=== PATIENT | female | born 1955 | race Caucasian/White ===

== ENCOUNTER 2017-10-13 11:14 | Emergency (ER) | payer BC, OTHER ==
[~2017-10-13] VITALS: Ht 304.8 cm; Wt 98.3 kg
[2017-10-13 11:30] VITALS: BP 140/71; PULSE 69; RESP 18; TEMP 98; O2SAT 95
[2017-10-13] MEDS ORDERED: GLIP10TA6 PO (11:37)
[2017-10-13] MEDS ORDERED: DAPA1TAB3 PO (11:37)
[2017-10-13] MEDS ORDERED: LANTUS2P SQ (11:37)
[2017-10-13] MEDS ORDERED: CIPR0.3S RIGHT EAR (11:43)
--- NOTE | 2017-10-13 11:48 | PD ---
HPI Chief Complaint: ENT Complaint Time Seen by Provider: 11:33 Travel History International Travel<30 days: No Contact w/Intl Traveler<30days: No Traveled to known affect area: No History of Present Illness HPI Patient comes in complaining of bilateral ear pain right greater than left ongoing for 2 weeks. Patient states her right ear is been draining. Describes pain as aching-like pain without radiation. Patient is been taking ibuprofen and putting cotton in her ear with no improvement of symptoms. Denies anything making it worse. Denies any fevers, nausea or vomiting, sore throat, neck pain , difficulty swallowing, or headaches. PFSH Past Medical History Diabetes: Yes Patient Takes Glucophage: No Influenza Vaccination: No ?: Not Past Surgical History Appendectomy: Yes Genitourinary Surgery: Yes (BLADDER) Joint Replacement: Yes (KNEE) Social History Alcohol Use: No Tobacco Use: No Substance Use: No Allergies-Medications (Allergen,Severity, Reaction): Coded Allergies: oxycodone (Verified Allergy, Unknown, DOES NOT KNOW WHY, 10/13/17) Reported Meds & Prescriptions Reported Meds & Active Scripts Active Ciprodex Otic Drops (Ciprofloxacin-Dexamethasone Otic Drops) 0.3-0.1% Susp 4 Drop RIGHT EAR BID 10 Days Reported Farxiga (Dapagliflozin) 10 Mg Tab 10 Mg PO DAILY Glipizide 10 Mg Tab 10 Mg PO DAILY@1600 Take 30 minutes before a meal Lantus Inj (Insulin Glargine) 1,000 Unit/10 Ml Vial 10 Units SQ HS Review of Systems Except as stated in HPI: all other systems reviewed are Neg Physical Exam Narrative GENERAL: Well-developed, overly nourished, in no acute distress, and non-ill appearing. SKIN: Focused skin assessment warm and dry. HEAD: Atraumatic. Normocephalic. EYES: Pupils equal and round. EOMI. No scleral icterus. No injection or drainage. ENT: No nasal bleeding or discharge. Mucous membranes pink and moist. Tympanic membranes pearly traylor bilaterally. Right auditory canal is edematous and erythematous. There is reproducible pain with tugging of the auricle and tragus. NECK: Trachea midline. No cervical lymphadenopathy. Supple. No nuclear rigidity. RESPIRATORY: No accessory muscle use. No respiratory distress. MUSCULOSKELETAL: No obvious deformities. No clubbing. No cyanosis. No edema. Full range of motion. NEUROLOGICAL: Awake and alert. No obvious cranial nerve deficits. Motor grossly within normal limits. Normal speech. PSYCHIATRIC: Appropriate mood and affect; insight and judgment normal. Data Data Last Documented VS Vital Signs Date Time Temp Pulse Resp B/P (MAP) Pulse Ox O2 Delivery O2 Flow Rate FiO2 10/13/17 11:30 98.0 69 18 140/71 (94) 95 Orders Orders Ed Discharge Order (10/13/17 11:48) MDM Medical Decision Making Medical Screen Exam Complete: Yes Emergency Medical Condition: Yes Differential Diagnosis Otitis media, otitis externa, otalgia Narrative Course The patient presented with ear pain. History and examination revealed evidence of otitis externa. There was no significant swelling of the canal nor significant debris. No clinical evidence by history or evaluation to suspect meningitis and/or sepsis, nor malignant OE or mastoiditis. I discussed with the patient, diagnosis, plan of care and to follow up with the patients primary physician within the next week. The patient was discharged on otic antibiotic drops. The patient was instructed to not swim or submerge head in bath or shower , or any other activity that would allow water into canal until cleared by their physician. The patient was instructed to return if worsens in anyway, especially if increased pain, develop fever, worsening headache, neck pain or as needed. The patient agreed with plan. Patient in no obvious distress upon re-evaluation. Patient was asked if they wanted to speak to my attending, which the patient did not wish to do at this time. Any questions/concerns in reference to patient diagnosis/condition discussed and clarified prior to patient's discharge. Reinforced sheer importance of close follow up with patient's primary physician or primary care clinic. Instructed patient to return to ED immediately, if symptoms return/ worsen. Patient showed understanding of above instructions. Further instructions and recommendations were detailed in discharge paperwork. Patient ambulated without difficulty out of ED at discharge. Diagnosis Primary Impression: Right otitis externa Qualified Codes: H60.501 - Unspecified acute noninfective otitis externa, right ear Additional Impression: Otalgia of both ears Referrals: Guevara Ba MD Patient Instructions: Earache (ED), General Instructions, Otitis Externa (ED) Additional Instructions: Follow-up with your primary care physician and/or ENT in 3-5 days for reevaluation. Take all medication as prescribed. Return to the emergency department if symptoms get worse. Med/Other Pt SpecificInfo: Prescription(s) given Scripts Ciprofloxacin-Dexamethasone Otic Drops (Ciprodex Otic Drops) 0.3-0.1% Susp 4 DROP RIGHT EAR BID for Infection for 10 Days, #1 BOTTLE 0 Refills Prov: Steven Barnard MD 10/13/17 Disposition: 01 DISCHARGE HOME Condition: Stable Elliot Marcelo Oct 13, 2017 11:48
== END 2017-10-13 12:20 | disposition home or self-care (01) ==
LOC: PHEFT 11:14
DX: H60.501 Unspecified acute noninfective otitis externa, right ear (principal); H92.03 Otalgia, bilateral; E11.9 Type 2 diabetes mellitus without complications; Z79.4 Long term (current) use of insulin
CPT/HCPCS: 99283

== ENCOUNTER 2017-12-30 19:15 | Emergency (ER) | payer BC, OTHER ==
[~2017-12-30 19:15] MED LIST: CIPR0.3S RIGHT EAR; DAPA1TAB3 PO; GLIP10TA6 PO; LANTUS2P SQ
[2017-12-30 19:29] VITALS: BP 129/73; PULSE 90; RESP 18; TEMP 99.3; O2SAT 94
[2017-12-30] MEDS ORDERED: ONDANSETRON ODT 4 MG TAB PO ONE (20:15)
[2017-12-30] MEDS ORDERED: ACETAMINOPHEN 325 MG TAB PO ONE (20:15)
--- NOTE | 2017-12-30 20:23 | PD ---
HPI Chief Complaint: Cold / Flu Symptoms Time Seen by Provider: 19:59 Travel History International Travel<30 days: No Contact w/Intl Traveler<30days: No Traveled to known affect area: No History of Present Illness HPI 62-year-old female presents to the ED for evaluation of cold-like symptoms since yesterday. Per patient she has been ongoing for 2 days. She has been having body aches, nausea, headache and sinus congestion. Diabetic and has not eaten today due to loss of appetite and nausea. Has not seen anybody for this. Patient is a low-grade fever. Body aches throughout but mostly on the head. Pain on the maxillary areas. Allergies to oxycodone. No recent travel. No sick contacts. No get the flu shot this year. No history of COPD or asthma. No smoker. PFSH Past Medical History Diabetes: Yes Past Surgical History Appendectomy: Yes Genitourinary Surgery: Yes (BLADDER) Joint Replacement: Yes (KNEE) Social History Alcohol Use: No Tobacco Use: No Substance Use: No Allergies-Medications (Allergen,Severity, Reaction): Coded Allergies: oxycodone (Verified Allergy, Unknown, DOES NOT KNOW WHY, 10/13/17) Reported Meds & Prescriptions Reported Meds & Active Scripts Active Tessalon Perles (Benzonatate) 100 Mg Cap 200 Mg PO TID PRN Zofran Odt (Ondansetron Odt) 4 Mg Tab 4 Mg SL Q6HR PRN Amoxicillin 875 Mg Tab 875 Mg PO BID 10 Days Reported Farxiga (Dapagliflozin) 10 Mg Tab 10 Mg PO DAILY Glipizide 10 Mg Tab 10 Mg PO DAILY@1600 Take 30 minutes before a meal Lantus Inj (Insulin Glargine) 1,000 Unit/10 Ml Vial 10 Units SQ HS Review of Systems Except as stated in HPI: all other systems reviewed are Neg Physical Exam Narrative GENERAL: Well-nourished, well-developed patient in no apparent distress. SKIN: Warm and dry. HEAD: Atraumatic. Normocephalic. EYES: Pupils equal and round reactive to light and accommodation. No scleral icterus. No injection or drainage. ENT: No nasal bleeding or discharge. Mucous membranes pink and moist. Right TM appears to be bulging and swollen but no sign of erythema. Left TM appears to be erythematous and bulging, no perforations bilaterally. No mastoid tenderness. Ear canals are intact bilaterally. No lymphadenopathy. Nostril mucosa is red and moist with clear mucus noted. No sinus tenderness to palpation noted. Tonsils are not enlarged or swollen. No ulvua Deviation. Tongue is midline. NECK: Trachea midline. No JVD. No meningeal signs noted CARDIOVASCULAR: Regular rate and rhythm. RESPIRATORY: No accessory muscle use. Clear to auscultation. Breath sounds equal bilaterally. GASTROINTESTINAL: Abdomen soft, non-tender, nondistended. Hepatic and splenic margins not palpable. MUSCULOSKELETAL: Extremities without clubbing, cyanosis, or edema. No obvious deformities. NEUROLOGICAL: Awake and alert. No obvious cranial nerve deficits. Motor grossly within normal limits. Five out of 5 muscle strength in the arms and legs. Normal speech. PSYCHIATRIC: Appropriate mood and affect; insight and judgment normal. Data Data Last Documented VS Vital Signs Date Time Temp Pulse Resp B/P (MAP) Pulse Ox O2 Delivery O2 Flow Rate FiO2 12/30/17 19:29 99.3 90 18 129/73 (91) 94 Orders Orders Acetaminophen (Tylenol) (12/30/17 20:15) Ondansetron Odt (Zofran Odt) (12/30/17 20:15) Influenzae A/B Antigen (12/30/17 20:04) Blood Glucose (12/30/17 20:05) Amoxicillin (Trimox) (12/30/17 21:15) MDM Medical Decision Making Medical Screen Exam Complete: Yes Emergency Medical Condition: Yes Medical Record Reviewed: Yes Interpretation(s) flu negative Differential Diagnosis Otitis media versus sinusitis versus influenza versus URI Narrative Course 62-year-old female who presents to the ED for evaluation of cold-like symptoms. Patient was properly examined and was found to have signs and symptoms consistent appears to be otitis media. She has swelling on both ears but the left one appears to be erythematous. Flu test was done. Flu test was negative. Patient was reassured. This time patient will be given first dose of amoxicillin here. Given prescription for amoxicillin, Tessalon Perles and Zofran. Told to follow-up with PCP. See ED worsening symptoms. Diagnosis Primary Impression: Otitis media Qualified Codes: H66.003 - Acute suppurative otitis media without spontaneous rupture of ear drum, bilateral Patient Instructions: General Instructions Additional Instructions: Motrin and Tylenol for pain and fever. You can use [id number] antihistamine as well as well as Mucinex as needed for runny nose and congestion. Cough drops for cough as needed. Drink plenty of fluids. Follow-up with PCP. See ED for worsening symptoms. Med/Other Pt SpecificInfo: Prescription(s) given Scripts Benzonatate (Tessalon Perles) 100 Mg Cap 200 MG PO TID Y for COUGH, #20 CAP 0 Refills Prov: Chao Perry MD 12/30/17 Ondansetron Odt (Zofran Odt) 4 Mg Tab 4 MG SL Q6HR Y for Nausea/Vomiting, #20 TAB 0 Refills Prov: Chao Perry MD 12/30/17 Amoxicillin (Amoxicillin) 875 Mg Tab 875 MG PO BID for Infection for 10 Days, #20 TAB 0 Refills Prov: Chao Perry MD 12/30/17 Disposition: 01 DISCHARGE HOME Condition: Stable Wilfredo Rios Dec 30, 2017 20:22
[2017-12-30] MEDS ORDERED: ZOFR4TAB3 SL (21:01)
[2017-12-30] MEDS ORDERED: AMOX875T PO (21:01)
[2017-12-30] MEDS ORDERED: BENZ100 PO (21:01)
[2017-12-30] MEDS ORDERED: AMOXICILLIN 875 MG TAB PO ONE (21:15)
== END 2017-12-30 21:25 | disposition home or self-care (01) ==
LOC: PHEFT 19:15
DX: H66.93 Otitis media, unspecified, bilateral (principal); R52 Pain, unspecified; R11.0 Nausea; R51 Headache; R09.81 Nasal congestion; R50.9 Fever, unspecified; E11.9 Type 2 diabetes mellitus without complications; Z79.4 Long term (current) use of insulin; Z79.899 Other long term (current) drug therapy
CPT/HCPCS: 87804; 99283

== ENCOUNTER 2018-01-02 06:35 | Emergency (ER) | payer BC, OTHER ==
[~2018-01-02] VITALS: Ht 175.3 cm; Wt 100.0 kg
[~2018-01-02 06:35] MED LIST changes: +AMOX875T PO; +BENZ100 PO; -CIPR0.3S RIGHT EAR; +ZOFR4TAB3 SL
[2018-01-02 06:39] VITALS: BP 118/66; PULSE 99; RESP 14; TEMP 99.1; O2SAT 93
[2018-01-02 06:53] VITALS: BP 127/75; PULSE 65; RESP 18; TEMP 99.1; O2SAT 92
[2018-01-02] MEDS ORDERED: ZOLO25TA PO (07:02)
[2018-01-02 07:14] LABS: BILIRUBIN, URINE NEG (NEG); BLOOD, URINE NEG (NEG); GLUCOSE,URINE 1000 OR GREATER mg/dL (NEG); KETONE, URINE 15 mg/dL (NEG); NITRITE,URINE NEG (NEG); PH, URINE 5.5 (5.0-8.5); URINE COLOR YELLOW (YELLW/STRAW); URINE LEUKOCYTE ESTERASE NEG (NEG)
--- NOTE | 2018-01-02 07:18 | PD ---
HPI Chief Complaint: Flank/Kidney Pain Time Seen by Provider: 07:13 Travel History International Travel<30 days: No Contact w/Intl Traveler<30days: No Traveled to known affect area: No History of Present Illness HPI Patient presents with complaints of lower abdominal and lower back pain. Symptom onset 4-5 days. Reports urinary incontinence. Denies any hematuria. Reports frequency. Denies any misstep or fall. No history of kidney stones. Pain is constant nature. Mild nausea. No vomiting. PFSH Past Medical History Depression: Yes Diabetes: Yes Patient Takes Glucophage: No Influenza Vaccination: No ?: Not Past Surgical History Appendectomy: Yes Eye Surgery: Yes (Cataract SX) Genitourinary Surgery: Yes (BLADDER) Hysterectomy: Yes (Complete) Joint Replacement: Yes (KNEE) Social History Alcohol Use: No Tobacco Use: No Substance Use: No Allergies-Medications (Allergen,Severity, Reaction): Coded Allergies: oxycodone (Verified Allergy, Unknown, DOES NOT KNOW WHY, 01/02/18) Reported Meds & Prescriptions Reported Meds & Active Scripts Active Tessalon Perles (Benzonatate) 100 Mg Cap 200 Mg PO TID PRN Zofran Odt (Ondansetron Odt) 4 Mg Tab 4 Mg SL Q6HR PRN Amoxicillin 875 Mg Tab 875 Mg PO BID 10 Days Reported Zoloft (Sertraline HCl) 25 Mg Tab 25 Mg PO DAILY Farxiga (Dapagliflozin) 10 Mg Tab 10 Mg PO DAILY Glipizide 10 Mg Tab 10 Mg PO DAILY@1600 Take 30 minutes before a meal Lantus Inj (Insulin Glargine) 1,000 Unit/10 Ml Vial 10 Units SQ HS Review of Systems General / Constitutional: No: Fever Eyes: No: Visual changes HENT: No: Headaches Cardiovascular: No: Chest Pain or Discomfort Respiratory: No: Shortness of Breath Gastrointestinal: Positive: Abdominal Pain Genitourinary: Positive: Incontinence, No: Dysuria Musculoskeletal: No: Pain Skin: No Rash Neurologic: No: Weakness Psychiatric: No: Depression Endocrine: No: Polydipsia Hematologic/Lymphatic: No: Easy Bruising Physical Exam Narrative GENERAL: Well-nourished, well-developed patient. SKIN: Focused skin assessment warm/dry. HEAD: Normocephalic. EYES: No scleral icterus. No injection or drainage. NECK: Supple, trachea midline. No JVD or lymphadenopathy. CARDIOVASCULAR: Regular rate and rhythm without murmurs, gallops, or rubs. RESPIRATORY: Breath sounds equal bilaterally. No accessory muscle use. GASTROINTESTINAL: Abdomen soft, non-tender, nondistended. MUSCULOSKELETAL: No cyanosis, or edema. BACK: Nontender without obvious deformity. No CVA tenderness. Examination of the lumbar sacral spine reveals no midline tenderness left-sided paraspinous pain Data Data Last Documented VS Vital Signs Date Time Temp Pulse Resp B/P (MAP) Pulse Ox O2 Delivery O2 Flow Rate FiO2 01/02/18 06:56 18 01/02/18 06:53 99.1 65 127/75 (92) 92 Orders Orders Urinalysis - C+S If Indicated (01/02/18 07:05) Labs Laboratory Tests Test 01/02/18 06:57 Urine Collection Type CLEAN CATCH Urine Color YELLOW Urine Turbidity SL CLOUDY Urine pH 5.5 Urine Specific [place] 1.025 Urine Protein TRACE mg/dL Urine Glucose (UA) 1000 OR GREATER mg/dL Urine Ketones 15 mg/dL Urine Occult Blood NEG Urine Nitrite NEG Urine Bilirubin NEG Urine Urobilinogen 0.2 MG/DL Urine Leukocyte Esterase NEG Urine WBC 0-2 /hpf Urine Squamous Epithelial Cells > 8 /hpf Urine Transitional Epithelial Cells 0-5 /hpf Urine Amorphous Sediment LARGE Urine Fine Granular Casts 0-2 /lpf Urine Yeast (Budding) FEW Microscopic Urinalysis Comment CULT NOT INDICATED Urine Collection Time 0657 [facility] Medical Decision Making Medical Screen Exam Complete: Yes Emergency Medical Condition: Yes Differential Diagnosis UTI, nephrolithiasis, cystitis, dysuria Narrative Course Assessment plan discussed with and at bedside. Diagnosis Primary Impression: Dysuria Additional Impression: Back pain Qualified Codes: M54.5 - Low back pain Patient Instructions: General Instructions Additional Instructions: Encourage nonsteroidal anti-inflammatories warm heat gentle stretching strengthening and massage. Encourage fluids and cranberry supplement. Follow- up with PCP. Return to emerge from with any onset of new symptoms. Med/Other Pt SpecificInfo: Prescription(s) given Scripts Ciprofloxacin (Cipro) 500 Mg Tab 500 MG PO BID for Infection for 3 Days, #6 TAB 0 Refills Prov: John Paul Christy MD 01/02/18 Disposition: 01 DISCHARGE HOME Condition: Good John Paul Christy MD Jan 02, 2018 07:18
[2018-01-02 07:28] LABS: AMORPHOUS SEDIMENT, URINE LARGE; SQUAMOUS EPITHELIAL CELL URINE > 8 /hpf (0-5); TRANSITIONAL EPI CELLS, URINE 0-5 /hpf; WBC, URINE 0-2 /hpf (0-5)
[2018-01-02] MEDS ORDERED: CIPR-9 PO (08:19)
[2018-01-02 08:40] VITALS: BP 119/61
== END 2018-01-02 08:42 | disposition home or self-care (01) ==
LOC: PHED 06:35
DX: R30.0 Dysuria (principal); M54.5 Low back pain; R10.30 Lower abdominal pain, unspecified; R11.0 Nausea; E11.9 Type 2 diabetes mellitus without complications; F32.9 Major depressive disorder, single episode, unspecified; Z79.4 Long term (current) use of insulin; Z79.899 Other long term (current) drug therapy; Z88.5 Allergy status to narcotic agent
CPT/HCPCS: 81001; 99283